=== PATIENT | male | born 1980 | race Caucasian/White ===

== ENCOUNTER 2020-07-26 14:58 | Emergency (ER) | payer OTHER ==
[~2020-07-26] VITALS: Ht 170.2 cm; Wt 106.6 kg
[2020-07-26 15:08] VITALS: Ht 170.2 cm; Wt 106.6 kg
[2020-07-26 17:08] LABS: BASOPHIL % 1.2 % (0.2-1.5)
[2020-07-26 17:12] LABS: PLATELET COUNT 433 x10^3mcL (152-348); RED CELL DISTRIBUTION WIDTH 15.7 % (12.1-16.2)
[2020-07-26 17:35] LABS: CALCIUM 8.1 mg/dL (8.5-10.1); CARBON DIOXIDE 30.1 mmol/L (21-32); CREATININE SERUM 1.4 mg/dL (0.7-1.3); POTASSIUM SERUM 3.9 mmol/L (3.5-5.1)
[2020-07-26 17:47] LABS: ALBUMIN 3.4 g/dL (3.4-5.0); BILIRUBIN TOTAL 0.3 mg/dL (0.20-1.00); T4(THYROXINE) 7.8 ug/dL (4.7-13.3); TOTAL PROTEIN, SERUM 7.7 g/dL (6.4-8.2)
[2020-07-26 18:27] LABS: AMPHETAMINE QUAL UR NONE DETECTED (See below)
[2020-07-26 19:16] VITALS: BP 125/77
== END 2020-07-26 20:23 | disposition home or self-care (01) ==
LOC: ED 14:58
PROVIDERS: Emergency Medicine
DX: G40.909 Epilepsy, unspecified, not intractable, without status epilepticus (principal); Z86.73 Personal history of transient ischemic attack (TIA), and cerebral infarction without residual deficits
CPT/HCPCS: J1953